=== PATIENT | female | born 1990 | race Caucasian/White ===

== ENCOUNTER → 2017-09-25 11:20 | Outpatient (CLI) | payer OTHER, SELFPAY ==
--- NOTE | 2017-09-25 11:20 | DT_ITS ---
This patient was seen during an EMR downtime September 18, 2017 - September 25, 2017. This patient may have a combination of paper and electronic documentation or all paper documentation. All documentation is viewable within the e-chart portion of [facility] for each patient visit.
[2017-09-25 12:27] LABS: T4 Free Direct 1.09 ng/dL (0.76-1.46); Thyroid Stim Hormone (TSH) 0.21 uIU/mL (0.358-3.74)
== END ==
PROVIDERS: Family Provider Family Medicine; PCP Family Medicine; Visit Provider Otolaryngology
DX: E07.89 Other specified disorders of thyroid (principal)
CPT/HCPCS: 36415; 84439; 84443

== ENCOUNTER → 2017-10-02 14:56 | Outpatient (CLI) | payer SELFPAY ==
--- NOTE | 2017-10-02 15:08 | US_ITS ---
STUDY: THYROID ULTRASOUND REASON FOR EXAM: Female, 27 years old. Left thyroid mass. TECHNIQUE: Ultrasound evaluation of the thyroid was performed with real-time and static ruvalcaba-scale imaging. COMPARISON: None. FINDINGS: RIGHT LOBE: The right lobe of the thyroid gland measures 5.6 x 1.8 x 2.1 cm. There is a heterogeneous echotexture. There are no demonstrated solid, cystic or complex lesions. There is normal vascularity on Doppler imaging. LEFT LOBE: The left lobe of the thyroid gland measures 5.8 x 2.6 x 2.4 cm. There is a heterogeneous echotexture. There is a complex solid and cystic mass measuring 4.1 x 3.2 x 2.1 cm which extends into the area of the left isthmus. There is perinodular vascularity. ISTHMUS: The isthmus measures 1.0 cm. There is a 1.1 x 2.4 x 0.5 cm markedly hypoechoic lesion in the mid isthmus with through transmission. There is mild vascularity. The regional lymph nodes are normal. US/Thyroid IMPRESSION: 1. Uniformly enlarged thyroid. 2. Large complex solid and cystic mass in left thyroid. 3. Hypoechoic nodule in the isthmus. This is the more suspicious nodule as it is solid and markedly hypoechoic. TR 4 Electronically Signed: Srinath Cruz DO at 11:53 EDT Tel [phone], Service support ,
== END ==
PROVIDERS: Family Provider Family Medicine; PCP Family Medicine; Visit Provider Otolaryngology
DX: E04.1 Nontoxic single thyroid nodule (principal)
CPT/HCPCS: 76536

== ENCOUNTER 2017-10-15 22:40 | Emergency (ER) | payer OTHER, SELFPAY ==
[2017-10-15 22:41] VITALS: BP 115/70; PULSE 103; RESP 16; TEMP 37.7; O2SAT 99; BMI 28.5
--- NOTE | 2017-10-15 23:24 | ED.DCSUM_ITS ---
- ER Visit Summary Date of Service: 10/15/17 Chief Complaint: Painful neck mass after biopsy and reported subjective fever History of Present Illness: The patient is a 27 F recently is being worked up in [place] for a neck mass. She had a biopsy nearly 2 weeks ago. In the last 2- 3 days she has had increasing pain and swelling of the mass. She states she has had a low-grade fever of around 100.3. Some pain with swallowing. She denies cough. No significant sore throat. No dysuria or abdominal pain. Currently they do not have a specific diagnosis for this neck mass and she may need an open surgical biopsy because the initial one according to her and family was inconclusive. Physical Examination: Well-appearing young female. Vital signs are stable and afebrile. She does not look septic or toxic. She is in no acute distress. Pulse ox is 9 9% room air no signs of hypoxia. H EENT exam posterior pharynx moist and pink. No erythema or exudate. She is having no trouble swallowing or breathing no stridor or drooling. Trachea midline she does have a mass in the left lower and lateral aspect of her neck which is tender palpation. She is a rash on her neck secondary to recent poison luciana. She states it itches. There is no obvious abscess at this time. Lungs clear to auscultation bilaterally. Heart regular rhythm no murmur. Abdomen soft nontender. She is moving all 4 extremities. They are neurovascularly intact. Calves are nontender without edema or cords. Neurologically she is awake and alert without focal motor deficits. Test Results: CBC shows normal white count 7. H&H 1134. No bands. CT soft tissue the neck shows complex hypodensity left thyroid area 4 x 2 cm either an abscess or hematoma after the biopsy. Clinically more than likely this is a hematoma. However due to her fever we will start her on Keflex 500 4 times daily. Emergency Department Course and Treatment: Patient was given IV morphine and Zofran for pain. Treatment Plan: Repeat exam the patient is doing well at 0 120. No trouble breathing or swallowing. I discussed test results and CAT scan with the family. She will be started on Keflex 500 4 times daily. She is an appointment to see the physician who did the biopsy tomorrow. They can decide at that time they will continue the antibiotics or not. Disposition: Discharge Impression: Left neck mass of uncertain etiology Fever secondary to soft tissue infection post biopsy versus hematoma This note was generated with [employer] dictation software. It may contain incorrect words, spelling, and punctuation that were not noted in review of the chart prior to signing ED Disposition - Plan for ED Patient: Chief Complaint: Other, Pain/Inj Referrals: Caleb Armijo DO [Primary Care Provider] -
[2017-10-15] MEDS: Morphine 4 MG/ML Syringe IV (23:26)
[2017-10-15] MEDS: Ondansetron 4 MG/2 ML Vial IV (23:26)
[2017-10-15 23:29] LABS: Absolute Lymphocyte Count 1.49 X10^3/ul (0.83-4.51); Absolute Neutrophil Count 5.1 X10^3/uL (2.0-7.7); Basophil# 0.02 X10^3/uL; Basophil% 0.3 % (0-1); Eosinophil# 0.08 X10^3/uL; Eosinophils% 1.1 % (0-5); Hematocrit 34.8 % (37-47); Hemoglobin 11.1 g/dl (12.0-15.0); Lymphocyte # 1.49 X10^3/ul (4.0); Lymphocyte % 19.6 % (19-41); Mean Corp Hgb Conc 31.9 g/gl (32-36); Mean Corpuscular Hgb 27.3 pg (27.0-32.0); Mean Corpuscular Volume 85.5 fL (81-99); Mean Platelet Vol. 10.4 fl (6.2-12.0); Monocyte# 0.87 X10^3/uL; Monocyte% 11.5 % (0-10); Neutrophil # 5.12 X10^3/uL (2.7-7.7); Neutrophil % 67.4 % (47-70); Platelet Count 240 K/mm3 (150-450); RBC Distribution Width CV 14.9 % (11.6-14.6); RBC Distribution Width SD 45.7 fl (35.1-43.9); Red Blood Count 4.07 M/mm3 (4.2-5.4); White Blood Count 7.6 K/mm3 (4.4-11.0)
[2017-10-15 23:32] LABS: POSITIVE COUNT NO; POSITIVE DIFFERENTIAL NO; POSITIVE MORPHOLOGY NO
--- NOTE | 2017-10-16 01:23 | ED.DEP ---
ED Disposition - Plan for ED Patient: Disposition: Home or Assisted Living Chief Complaint: Other, Pain/Inj Instructions: ED Hematoma Prescriptions: Cephalexin [Keflex] 500 mg PO Q6 #30 cap Additional Instructions: Follow-up with your appointment tomorrow with to do biopsy. We will start her on antibiotic due to the fever but more than likely this is a hematoma or small amount of bleeding around the site of the biopsy. In case it is an early abscess or infection that is why we are starting you on the antibiotic. Antibiotic is Keflex and he will take 1 pill 4 times a day. Ice to your neck. Motrin and Tylenol for pain.
[2017-10-16] MEDS: Cephalexin 250 MG Capsule 500 MG PO (01:32)
[2017-10-16 01:35] VITALS: BP 118/71; PULSE 97; RESP 16; O2SAT 98
--- NOTE | 2017-10-16 23:14 | CT_ITS ---
STUDY: CT SOFT TISSUE NECK WITH CONTRAST REASON FOR EXAM: Female, 27 years old. PAIN AND FEVER WITH RECENT THYROID BIOPSY 1 WEEK AGO,? ABSCESS,SHIELDED RADIATION DOSAGE (If Supplied By Facility): CTDIvol = ( 18.09 ) mGy, DLP = ( 460.58 ) mGycm TECHNIQUE: The patient was scanned in a multi-detector CT scanner. High resolution transaxial imaging was performed following intravenous administration of 75ML ml of Isovue 300 contrast material. Sagittal and coronal images were reconstructed. Individualized dose optimization techniques were used for this CT. COMPARISON: None. FINDINGS: Normal bilateral parotid glands. Normal bilateral hospitality team member spaces. Normal bilateral parapharyngeal spaces. Normal bilateral carotid spaces. Normal bilateral sublingual and submandibular glands and spaces. Normal visualized nasopharynx. Normal retropharyngeal space. Normal perivertebral space. Normal visualized bilateral faucial tonsils. The visualized tongue, tongue base and oropharynx are normal. The visualized cervical lymph nodes (levels I-) are within normal size limits, and maintain normal morphology. There is no demonstrated solid or cystic mass lesion. There is no abnormal contrast enhancement. Normal epiglottis, bilateral vallecula and hypopharynx. The pre-epiglottic and paraglottic adipose spaces are normal. Normal visualized bilateral piriform sinuses, aryepiglottic folds, vocal cords, and arytenoid-cricoid articulations. Normal subglottic trachea. There is a complex hypoattenuation lesion in the left thyroid lobe measures 4.4 x 2.8 cm, it measured previously 4.1 x 2.1 cm, it has increased in size since the ultrasound from 05/04/2017 may represent abscess or hematoma. Needle aspiration may be warranted. Normal visualized pulmonary apices. Normal visualized paranasal sinuses. Normal visualized cervical spine. CT/Soft Tissue Neck WITH Contrast IMPRESSION: There is a complex hypoattenuation lesion in the left thyroid lobe measures 4.4 x 2.8 cm, it measured previously 4.1 x 2.1 cm, it has increased in size since the ultrasound from 05/04/2017 may represent abscess or hematoma. Needle aspiration may be warranted. Electronically Signed: Prudence Tijerina MD at 1:09 EDT Tel , Service support ,
== END 2017-10-16 01:37 | disposition home or self-care (01) ==
PROVIDERS: Emergency Provider Emergency Medicine; Family Provider Family Medicine; PCP Family Medicine
DX: R22.1 Localized swelling, mass and lump, neck (principal); R50.9 Fever, unspecified
CPT/HCPCS: 70491; 85025; 96374; 96375; 99283; Q9967; A4216; J2405

== ENCOUNTER → 2018-03-12 10:14 | Outpatient (CLI) | payer OTHER, SELFPAY ==
[2018-03-12 12:00] LABS: Free T3 3.1 pg/mL (2.18-3.98); T4 Free Direct 0.82 ng/dL (0.76-1.46); Thyroid Stim Hormone (TSH) 4.49 uIU/mL (0.358-3.74)
== END ==
PROVIDERS: Family Provider Family Medicine; PCP Family Medicine
DX: E04.2 Nontoxic multinodular goiter (principal); R79.89 Other specified abnormal findings of blood chemistry
CPT/HCPCS: 36415; 84439; 84443; 84481

== ENCOUNTER → 2018-06-06 13:58 | Outpatient (CLI) | payer OTHER, SELFPAY ==
[2018-06-06 15:15] LABS: T4 Free Direct 0.94 ng/dL (0.76-1.46); Thyroid Stim Hormone (TSH) 1.98 uIU/mL (0.358-3.74)
== END ==
PROVIDERS: Family Provider Family Medicine; PCP Family Medicine
DX: E04.1 Nontoxic single thyroid nodule (principal)
CPT/HCPCS: 36415; 84439; 84443

== ENCOUNTER → 2018-10-10 | Outpatient (CLI) | payer OTHER, SELFPAY ==
[2018-10-10 10:36] LABS: T4 Free Direct 1.19 ng/dL (0.76-1.46)
== END | disposition home or self-care (01) ==
LOC: LAB 08:53
PROVIDERS: Family Provider Family Medicine; PCP Family Medicine; Referring Provider Surgery; Visit Provider Surgery
DX: E06.3 Autoimmune thyroiditis (principal)
CPT/HCPCS: 36415; 84439; 84443

== ENCOUNTER → 2018-12-05 | Outpatient (CLI) | payer OTHER, SELFPAY ==
[2018-12-05 14:03] LABS: Thyroid Stim Hormone (TSH) 0.08 uIU/mL (0.358-3.74)
== END | disposition home or self-care (01) ==
LOC: LAB 12:30
PROVIDERS: Family Provider Family Medicine; PCP Family Medicine
DX: C73 Malignant neoplasm of thyroid gland (principal)
CPT/HCPCS: 36415; 84443

== ENCOUNTER → 2019-09-03 09:03 | Outpatient (CLI) | payer OTHER, SELFPAY ==
[2019-09-03 10:08] LABS: Thyroid Stim Hormone (TSH) 2.39 uIU/mL (0.358-3.74)
== END ==
PROVIDERS: PCP Family Medicine
DX: E89.0 Postprocedural hypothyroidism (principal)
CPT/HCPCS: 36415; 84443

== ENCOUNTER → 2020-04-08 09:22 | Outpatient (CLI) | payer OTHER, SELFPAY ==
[2020-04-08 10:51] LABS: Thyroid Stim Hormone (TSH) 2.68 uIU/mL (0.358-3.74)
== END ==
PROVIDERS: PCP Family Medicine
DX: E89.0 Postprocedural hypothyroidism (principal)
CPT/HCPCS: 36415; 84443

== ENCOUNTER → 2020-08-14 09:14 | Outpatient (CLI) | payer OTHER, SELFPAY ==
[2020-08-14 10:26] LABS: Thyroid Stim Hormone (TSH) 7.36 uIU/mL (0.358-3.74)
== END ==
PROVIDERS: PCP Family Medicine
DX: E89.0 Postprocedural hypothyroidism (principal)
CPT/HCPCS: 36415; 84443

== ENCOUNTER → 2020-12-03 08:27 | Outpatient (CLI) | payer OTHER, SELFPAY ==
[2020-12-03 09:56] LABS: Thyroid Stim Hormone (TSH) 0.24 uIU/mL (0.358-3.74)
== END ==
PROVIDERS: PCP Family Medicine
DX: E89.0 Postprocedural hypothyroidism (principal)
CPT/HCPCS: 36415; 84443